=== PATIENT | female | born 1935 | race Caucasian/White ===

== ENCOUNTER 2019-03-17 12:10 | Emergency (ER) | payer MEDICARE, MEDICAID, SELFPAY ==
[2019-03-17] VITALS (26 sets, daily range): BP systolic 114–151; BP diastolic 57–81; PULSE 60–76; RESP 16–24; TEMP 36.4–36.6; O2SAT 88–98
--- NOTE | ~2019-03-17 | XR_ITS ---
EXAMINATION: XR chest 1V portable DATE: 03/17/2019 13:38 INDICATION: Stupor. TECHNIQUE: A single frontal view of the chest was obtained. COMPARISON: Chest single view 03/07/2019, CT abdomen and pelvis 06/25/2018 FINDINGS: The chest demonstrates clear lungs without pneumonia, pleural effusion, or pneumothorax. Th e heart size is normal. IMPRESSION: 1. No acute cardiopulmonary disease. Reviewed, dictated and finalized at location A. LY COORDINATOR
--- NOTE | ~2019-03-17 | CT_ITS ---
EXAMINATION: CT brain wo con EXAM DATE: 03/17/2019 13:10 INDICATION: Altered mental status. Alzheimer's. TECHNIQUE: Spiral CT of the head was performed without contrast. Axial, coronal and sagittal images were reviewed. The dose-length product (DLP) for this examination was 605.33 mGy-cm. The exposure w as tailored according to patient size, and iterative reconstruction (ASIR) was used as additional dos e reduction technique. Comparison is made to prior examination from 03/07/2019. FINDINGS: There is no acute intraparenchymal hemorrhage. No evidence of intraparenchymal brain mass lesion. No evidence of acute infarction. Please note that initial head CT has limited sensitivity f or small or acute infarctions. 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 There is moderate maureen ventricular and subcortical hypodensity, nonspecific but probably related to small vessel ischemic di sease. There is ventricular prominence out of proportion to sulci, central atrophy versus normal pr essure hydrocephalus (clinical triad ataxia/gait disturbance, dementia, urinary incontinence). 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 There are no extra-axial collections. There is no mass effect or midline shift. The orbits are unremarkable. Soft tissue is unremarkable. The visualized sinuses and mastoid air cells are well aerated. There is no interval change. IMPRESSION: 1. No acute intracranial findings. 2. Dilated ventricles, Central atrophy versus NPH. Reviewed, dictated and finalized at location A. OR [employer] UN[employer] ADMINISTRATOR
--- NOTE | 2019-03-17 12:15 | ECG_ITS ---
Measurements Intervals [place] Rate: 64 P: 62 MA: 156 QRS: 50 QRSD: 88 T: 50 QT: 394 QTc: 408 Interpretive Statements SINUS RHYTHM BASELINE ARTIFACT- I, II, III, AVR, AVL, AVF, V1 NORMAL ECG Electronically Signed On 03-17-2019 13:11:14 WOUND CARE SPECIALIST by Raciel Griffith D.O.
--- NOTE | 2019-03-17 12:38 | ED.AMS ---
HPI - Altered Mental Status General Chief Complaint: Altered Mental Status Stated Complaint: altered Time Seen by Provider: 03/17/19 12:12 Source: EMS Mode of arrival: EMS Limitations: clinical condition History of Present Illness HPI narrative: Pt is an 83 y/o female who presents to the ED, via EMS, from [facility], with c/o AMS. Per EMS her LKN was 1030. Per EMS, she has a Hx of UTI's. A complete HPI is limited due to pt's clinical condition. MD complaint: altered mental status Onset (ago): hour(s) (1030AM) Associated symptoms: denies other symptoms Treatments prior to arrival: other (none) Related Data Allergies Allergy/AdvReac Type Severity Reaction Status Date / Time No Known Allergies Allergy Unverified 03/17/19 12:38 Review of Systems Review of Systems: ROS unobtainable: unobtainable due to mental condition PMFSH Past Medical History Medical History Anxiety (Acute) Deaf (Acute) Depression (Acute) Diabetes mellitus (Acute) GERD (gastroesophageal reflux disease) (Acute) HLD (hyperlipidemia) (Acute) UTI (urinary tract infection) (Acute) Surgical History Surgical History H/O lumpectomy (Acute) Right breast lumpectomy x2, 1 at the age of 23, and 1 at the age of 46 History of tonsillectomy (Acute) Tonsillectomy and adenoidectomy at 5 years old that is a child. Family History Family History Mother Family history of lung cancer Family history of malignant neoplasm of brain Father Family history of heart disease in male family member before age 55 Family history of malignant neoplasm of bone Social History Social History Social History: She lives with her roommate Myles Miranda in [place] [facility]. She has a daughter Tigist Encinas who lives in [facility]. Smoking status: Never smoker Second hand tobacco smoke exposure: No Alcohol intake: never Substance use: never Substance use type: does not use Gender identity (if verbalized by the patient): Female Spiritual care concerns: No Agree to blood products: Yes Exam Narrative: Exam Narrative: GENERAL: Laying in bed sleeping, well-nourished, and in no acute distress. HEAD: Normocephalic, atraumatic. EYES: PERRLA and EOMI. ENT: Mucous membranes moist. CHEST: Clear to auscultation. No respiratory distress. HEART: Regular rate and rhythm. Normal peripheral pulses. ABDOMEN: Soft, mild lower abdominal discomfort and patient reports she has to urinate, nondistended, normal active bowel sounds. EXTREMITIES: Normal range of motion. trace edema. SKIN: Warm, dry, no rash. NEURO: Patient is hard of hearing, coronal nerves II through XII intact, moves extremities appropriately to pain, will not answer orientation questions but reports she has to urinate. Course Course Emergency Course: Patient is more awake. Will attempt to talk in one-word sentences. Is ambulated to the bathroom. Unremarkable evaluation. Discharge back to senior care. Vital Signs Vital signs: Vital Signs Temperature 97.6 F 03/17/19 12:15 Pulse Rate 68 03/17/19 12:15 Respiratory Rate 24 H 03/17/19 12:15 Blood Pressure 151/69 H 03/17/19 12:15 Pulse Oximetry 90 L 03/17/19 12:15 Temperature 97.6 F 03/17/19 12:15 Pulse Rate 62 03/17/19 16:00 Respiratory Rate 16 03/17/19 16:00 Blood Pressure 137/81 03/17/19 16:00 Pulse Oximetry 94 L 03/17/19 16:00 MDM - Altered Mental Status Lab Data Result diagrams: 03/17/19 12:37 03/17/19 12:37 Labs: Lab Results 03/17/19 03/17/19 03/17/19 Range/Units 12:37 12:37 13:02 WBC 5.6 (4.5-10.0) K/mm3 RBC 5.06 (4.2-5.4) M/mm3 Hgb 15.2 H (12.0-15.0) g/dL Hct 46.4 (37.0-47.0) % MCV 91.7 (80-100) fl MCH 30.0 (26-34) pg MCHC 32.8
[2019-03-17 12:42] LABS: Basophils Percent Auto 0.4 % (0.2-1.2); Eosinophils Percent Auto 0.5 % (0-4.4); Hematocrit 46.4 % (37.0-47.0); Hemoglobin 15.2 g/dL (12.0-15.0); Immature Granulocyte Absolute 0.02 K/mm3 (0.00-0.031); Immature Granulocyte Percent A 0.4 % (0-0.5); Lymphocytes Absolute Auto 0.79 K/mm3 (0.9-3.2); Mean Corpuscular HGB Conc 32.8 g/dl (32-36); Mean Corpuscular Volume 91.7 fl (80-100); Monocytes Absolute Auto 0.3 K/mm3 (0.1-0.6); Neutrophils Absolute Auto 4.4 K/mm3 (1.3-6.7); Neutrophils Percent Auto 78.7 % (45.5-73.1); Platelet Count Result 225 k/mm3 (150-375); Red Blood Count 5.06 M/mm3 (4.2-5.4); White Blood Count 5.6 K/mm3 (4.5-10.0)
[2019-03-17 12:55] LABS: Alanine Aminotransferase 28 U/L (4-35); Alkaline Phosphatase 96 U/L (38-126); Aspartate Amino Transferase 38 U/L (14-36); Bilirubin,Total 0.6 mg/dL (0.2-1.3); Blood Urea Nitrogen 12 mg/dL (7-17); Calcium 8.9 mg/dL (8.4-10.2); Carbon Dioxide 31 mmol/L (22-30); Chloride 105 mmol/L (98-107); Estimated CRCL calculation 41 ml/min; Estimated Glomerular Filt Rate 60; Glucose 121 mg/dL (65-105); Potassium 4.1 mmol/L (3.4-5.0); Sodium 139 mmol/L (137-145)
[2019-03-17 13:12] LABS: Add Urine Microscopic? YES; Appearance Urine Clear (Clear); Bilirubin Urine Negative (Negative); Blood Urine Negative (Negative); Color Urine Straw (Yellow); Glucose Urine UA 1+ mg/dL (Negative); Ketones Urine Trace mg/dL (Negative); Leukocyte Esterase Ur Negative LEU/UL (Negative); Mucus Urine Rare /lpf; Nitrate Urine Negative (Negative); Protein Urine Negative (Negative); Specific Grav Ur 1.008 (1.001-1.035); Squamous Epithelial Cell Urine Rare /hpf (Few); Urobilinogen Urine Negative mg/dL (<2.0)
[2019-03-17 14:33] LABS: Alveolar/Arterial O2 Gradient 35.7 mmHg; Base Excess ABG 0.2 mEq/l (+/-2.0); Carboxyhemoglobin 0.2 % THb (0-2.0); Fractional Inspired Oxygen 21 %; HCO3 ABG 25.1 mEq/l (22.0-26.0); Methemoglobin ABG 0.3 %THb (0-1.5); Oxygen Content ABG 19.4 %vol (16.0-22.0); Oxygen Saturation ABG 92.5 % (95.0-100.0); Oxyhemoglobin 91.1 % THb (90.0-100.0); PCO2 ABG 41.5 mmHg (35.0-45.0); PO2 ABG 64.3 mmHg (80.0-100.0); PO2 FiO2 Ratio Arterial Blood 3.06 %; Reduced Hemoglobin 8.4 %THb (0-5.0); Total Hemoglobin 15.2 g/dL (12.0-18.0); pH ABG 7.399 (7.350-7.450)
[2019-03-17 14:34] LABS: Device ROOM AIR; Modified Allen's Test Pass; Site Drawn RIGHT RADIAL
--- NOTE | 2019-03-17 16:01 | PC.NURSE ---
pt ambulated to the bathroom with assistance of RN. pt gait unsteady, shuffeling feet.
--- NOTE | 2019-03-17 16:20 | PC.NURSE ---
Report called to Buffy PISANO at [facility], all questions answered. awaiting transportation at this time.
== END 2019-03-17 16:52 ==
PROVIDERS: Emergency Provider Emergency Medicine; PCP Physician Assistant
DX: R41.0 Disorientation, unspecified (principal); E11.9 Type 2 diabetes mellitus without complications; K21.9 Gastro-esophageal reflux disease without esophagitis; E78.5 Hyperlipidemia, unspecified; Z87.440 Personal history of urinary (tract) infections
CPT/HCPCS: 36415; 36600; 51701; 70450; 71045; 80053; 81001; 82375; 82805; 83050; 85025; 93005; 96372; 99283; 99284; J2060